=== PATIENT | male | born 1945 | race Caucasian/White ===

== ENCOUNTER 2018-06-17 09:10 | Day surgery (SDC) | payer MEDICARE, OTHER ==
[2018-06-17] MEDS: Ketorolac 0.5% Ophth Soln 5 ML Bottle EYELF SCH ×4 (10:50→12:32)
[2018-06-17] MEDS: Ofloxacin 0.3% Ophth Soln 5 ML Bottle EYELF SCH ×4 (11:34→12:32)
--- NOTE | 2018-06-17 12:04 | PCM.PREANE ---
Preanesthetic Assessment - Anesthesia/Transfusion/Family Hx Anesthesia History: Prior Anesthesia Without Reaction Family History of Anesthesia Reaction: No Transfusion History: No Prior Transfusion(s) - Review of Systems General: No Symptoms Pulmonary: No Symptoms Cardiovascular: Dyspnea on Exertion Gastrointestinal: No Symptoms Neurological: No Symptoms Other: Reports: None - Physical Assessment NPO Status Date: 06/16/18 NPO Status Time: 00:00 Pulse: 46 O2 Sat by Pulse Oximetry: 97 Respiratory Rate: 16 Blood Pressure: 101/53 Temperature: 36.7 C Height: 1.75 m Weight: 86.183 kg ASA Class: 2 Mental Status: Alert & Oriented x3 Airway Class: Mallampati = 1 Dentition: Reports: Normal Dentition, Dentures (top) Thyro-Mental Finger Breadths: 3 Mouth Opening Finger Breadths: 3 ROM/Head Extension: Full Lungs: Clear to Auscultation, Normal Respiratory Effort Cardiovascular: Regular Rate, Regular Rhythm - Allergies Allergies/Adverse Reactions: Allergies Allergy/AdvReac Type Severity Reaction Status Date / Time sulfamethoxazole Allergy Cannot Verified 06/16/18 12:50 [From Bactrim] Remember trimethoprim [From Bactrim] Allergy Cannot Verified 06/16/18 12:50 Remember - Blood Blood Available: No Product(s) Available: None - Anesthesia Plan Pre-Op Medication Ordered: None - Acknowledgements Anesthesia Type Planned: MAC Pt an Appropriate Candidate for the Planned Anesthesia: Yes Alternatives and Risks of Anesthesia Discussed w Pt/Guardian: Yes Pt/Guardian Understands and Agrees with Anesthesia Plan: Yes PreAnesthesia Questionnaire - SUBSTANCE USE Smoking Status *Q: Current Every Day Smoker Tobacco Use Within Last Twelve Months: Cigarettes Second Hand Smoke Exposure: Yes Days Per Week of Alcohol Use: 1 Number of Drinks Per Day: 2 Total Drinks Per Week: 2 Recreational Drug Use History: No - HOME MEDS Home Medications: Home Meds Aspirin [Escanaba Aspirin] 81 mg PO DAILY 06/16/18 [History] Celecoxib 200 mg PO DAILY 06/16/18 [History] Ranitidine HCl [Zantac] 150 mg PO DAILY 06/16/18 [History] Simvastatin 20 mg PO DAILY 06/16/18 [History] Tamsulosin [Flomax] 0.4 mg PO DAILY 06/16/18 [History] prednisoLONE Acetate [Prednisolone Acetate] 1 drop EYEBOTH ASDIRECTED 06/16/18 [ History] - CURRENT (IN HOUSE) MEDS Current Meds: Current Medications Ketorolac Tromethamine (Acular 0.5% Ophth Soln) 0 ml EYELF QID AMARIS Stop: 06/17/18 18:00 Last Admin: 06/17/18 11:40 Dose: 1 drop Ofloxacin (Ocuflox 0.3% Ophth Soln) 0 ml EYELF ONETIME AMARIS Stop: 06/17/18 18:00 Last Admin: 06/17/18 11:57 Dose: 1 drop Pilocarpine HCl (Pilocar 4% Ophth Soln) 0 ml EYELF ONETIME AMARIS Stop: 06/17/18 18:00
[2018-06-17] MEDS: Pilocarpine 4% Ophth Soln 15 ML Bot EYELF SCH ×2 (12:05→12:32)
[2018-06-17] MEDS: Tetracaine HCl/PF 0.5% 4 ML Bottle EYELF SCH ×2 (12:26→12:29)
[2018-06-17] MEDS ORDERED: Lidocaine 1% 30 ML SDV INJECT STA (12:26)
--- NOTE | 2018-06-17 12:39 | PCM48HPAN ---
Post Anesthesia Note - EVALUATION WITHIN 48HRS OF ANESTHETIC Vital Signs in Normal Range: Yes Patient Participated in Evaluation: Yes Respiratory Function Stable: Yes Airway Patent: Yes Cardiovascular Function Stable: Yes Hydration Status Stable: Yes Pain Control Satisfactory: Yes Nausea and Vomiting Control Satisfactory: Yes Mental Status Recovered: Yes Pulse Rate: 46 Resp Rate: 16 Temperature: 36.7 C Blood Pressure: 101/53 - COMMENTS/OBSERVATIONS Free Text/Narrative:: no anesthesia complications noted
[2018-06-17] MEDS ORDERED: Cefuroxime 10 MG/ML SYRINGE EYELF SCH (13:45)
== END 2018-06-17 12:48 | disposition home or self-care (01) ==
LOC: JD.SDS 09:10
PROVIDERS: ATTEND Ophthalmology
DX: H59.022 Cataract (lens) fragments in eye following cataract surgery, left eye (principal); H18.232 Secondary corneal edema, left eye; H35.363 Drusen (degenerative) of macula, bilateral; H35.3131 Nonexudative age-related macular degeneration, bilateral, early dry stage; F17.210 Nicotine dependence, cigarettes, uncomplicated; E78.00 Pure hypercholesterolemia, unspecified; Z79.899 Other long term (current) drug therapy; Z79.82 Long term (current) use of aspirin; Z88.2 Allergy status to sulfonamides; Z88.8 Allergy status to other drugs, medicaments and biological substances; Z98.41 Cataract extraction status, right eye; Z98.42 Cataract extraction status, left eye
CPT/HCPCS: 66850; A9270; J0697